=== PATIENT | male | born 1955 | race Caucasian/White ===

== ENCOUNTER 2019-03-25 06:43 | Day surgery (SDC) | payer OTHER ==
[~2019-03-25] VITALS: Ht 175.3 cm; Wt 96.0 kg
[2019-03-25] VITALS (9 sets, daily range): BP systolic 102–133; BP diastolic 78–93; PULSE 80–104; RESP 11–22; Ht 175.3 cm; Wt 96.0 kg
[~2019-03-25 06:43] MED LIST: SOD CHLORIDE 0.45% 1,000 ML IV SCH
[2019-03-25] MEDS ORDERED: FER325 PO (07:31)
[2019-03-25] MEDS ORDERED: FURO20TA3 PO (07:31)
[2019-03-25] MEDS ORDERED: ALPR0.25 PO (07:32)
[2019-03-25] MEDS ORDERED: ATOR20TA38 PO (07:32)
[2019-03-25] MEDS ORDERED: SENN-36 PO (07:32)
[2019-03-25] MEDS ORDERED: PROPOFOL 40 ML ONE (09:27)
[2019-03-25] MEDS ORDERED: LIDOCAINE 100 MG SYRINGE ONE (09:27)
[2019-03-25] MEDS ORDERED: FENTAnyl 50 MCG/ML VIAL ONE (09:27)
--- NOTE | 2019-03-25 09:47 | PREAC ---
Date/Time of Note Date/Time of Note DATE: 03/25/19 TIME: 09:41 Anesthesia Eval and Record Evaluation Time Pre-Procedure Interview DATE: 03/25/19 TIME: 09:41 Age 63 Sex male NPO: 8 hrs Preoperative diagnosis MITRAL REGURGITATION Planned procedure FABRIIZO Past Medical History Past Medical History: Includes (CMP) Cardio: HTN, Dyslipidemia, CAD Surgery & Anesthesia Issues No known issue Meds Anticoagulation: No Beta Hiram within 24 hr: No Reason Beta Hiram not given: Pt. not on B-Hiram Reported Medications Sennosides* (Senokot*) 8.6 Mg Tablet, 1 TAB PO DAILY, TAB 03/25/19 Alprazolam* (Xanax*) 0.25 Mg Tablet, 0.25 MG PO DAILY PRN for ANXIETY, TAB 03/25/19 Atorvastatin Calcium* (Atorvastatin Calcium*) 20 Mg Tablet, 20 MG PO QHS, #30 TAB 03/25/19 Ferrous Sulfate* (Ferrous Sulfate*) 325 Mg Tabec, 325 MG PO BID, TAB 03/25/19 Furosemide* (Furosemide*) 20 Mg Tablet, 20 MG PO DAILY, #60 TAB 03/25/19 Current Medications Sodium Chloride 1,000 ml @ 20 mls/hr Q24H IV ; Start 03/25/19 at 06:00; Stop 03/25/19 at 19:00 Meds reviewed: Yes Allergies Coded Allergies: No Known Allergy (Unverified , 03/25/19) Allergies Reviewed: Yes Labs/Studies Labs Reviewed: Reviewed by anesthesiologist Result Diagram: 03/25/19 0730 03/25/19 0730 Laboratory Tests 03/25/19 07:30 test: N/A Pre-procedure Exam Last vitals Vital Signs Date Temp Pulse Resp B/P (MAP) Pulse Ox O2 O2 Flow FiO2 Time Delivery Rate 03/25/19 97.1 104 16 131/93 98 Room Air 07:53 (106) Airway: Adequate mouth opening, Adequate thyromental dist Mallampati: Mallampati II Teeth: Normal Lung: Normal Heart: Normal ASA Physical Status ASA physical status: 3 Emergency: None Planned Anesthetic General/MAC: MAC Planned Pain Management Parenteral pain med Pre-operative Attestations Prior to commencing anesthesia and surgery, the patient was re-evaluated, there was verification of: *The patient's identity *The results of appropriate recent lab work and preoperative vital signs *The above evaluation not changing prior to induction *Anesthetic plan, risk benefits, alternative and complications discussed with p atient/family; questions answered; patient/family understands, accepts and wishes to proceed. Saul Alcantar M.D. Mar 25, 2019 09:47
--- NOTE | 2019-03-25 10:58 | SIPON ---
Date/Time of Note Date/Time of Note DATE: 03/25/19 TIME: 10:57 Operative Report Preoperative Diagnosis 1.Mitral regurgitation Postoperative Diagnosis 1.moderate to severe MR secondary etiology Operation/Procedure Performed 1.FABRIZIO Surgeon see signature line desk assistant 1.David Anesthesia: MAC Estimated blood loss: none Transfusion Required none Specimen none Grafts/Implants none Complications none DAVE SHIPLEY Mar 25, 2019 10:58
--- NOTE | 2019-03-25 11:04 | PAC ---
Date/Time of Note Date/Time of Note DATE: 03/25/19 TIME: 11:04 Post-Anesthesia Notes Post-Anesthesia Note Last documented vital signs Vital Signs Date Temp Pulse Resp B/P (MAP) Pulse Ox O2 O2 Flow FiO2 Time Delivery Rate 03/25/19 97.1 104 16 131/93 98 Room Air 07:53 (106) Activity: WNL Respiratory function: WNL Cardiovascular function: WNL Mental status: Baseline Pain reasonably controlled: Yes Hydration appropriate: Yes Nausea/Vomiting absent: Yes Saul Alcantar M.D. Mar 25, 2019 11:04
--- NOTE | 2019-03-26 08:17 | CARRPT ---
DATE OF PROCEDURE: 03/25/2019 TYPE OF PROCEDURE: Transesophageal echo, MR assess the etiology. ATTENDING PHYSICIAN: Dave Alejandro MD ANESTHESIA: MAC under direction of anesthesiologist, Dr. Alcantar at bedside. BRIEF HISTORY: Mr. Devon Ji is a 63-year-old male with history of hypertension and dyslipidemia, cardiomyopathy, decreased left ventricular ejection fraction. He presented as a consult from [facility] for a transseptal echo to assess etiology of mitral regurgitation prior to co ronary bypass graft surgery. DESCRIPTION OF PROCEDURE: After informed consent was obtained, the patient was brought to the [facility] unit where he was placed on continuous telemetry monitoring, continuous O2 saturation monito ring and blood pressure cuff cycling every 3 minutes. The patient had a bite block placed in his jin th and was given propofol MAC anesthesia under direction of anesthesiologist, Dr. Alcantar at [facility]. After achieving adequate local anesthesia, the patient's esophagus was intubated with transesopha geal echo probe and using a multiplanar imaging and color flow Doppler interrogation, the patient's i ntracardiac structures were adequately interrogated. The patient's proximal descending, ascending an d transverse aorta were then assessed, and the probe was removed. The patient was allowed to awake f rom his anesthetized state, completing the procedure. There were no noted complications. FINDINGS: 1. No definite findings of left atrial appendage thrombus or left atrial spontaneous contrast. Left atrial appendage velocity approximately 40 cm per second. 2. No definite findings of patent foramen ovale or other interatrial septal defect by color flow Dop pler interrogation of septum only. 3. Normal appearing aortic valve apparatus with trace aortic regurgitation. 4. Pulmonic apparatus poorly visualized. No pulmonic regurgitation noted. 5. Normal appearing catheter apparatus with a mild tricuspid regurgitation noted. 6. Mitral valve posterior leaflet is tethered and therefore there is poor coaptation of the patient' s mitral valve leaflets and subsequent posteriorly directed moderate to severe mitral regurgitation. There does not appear to have any flail leaflet identified. 7. Mild atherosclerotic plaquing in the patient's proximal descending, transverse and ascending aort a. IMPRESSION: Moderate to severe to the central mitral regurgitation secondary to a tethered pos terior mitral valve leaflet. RECOMMENDATIONS: The patient should undergo repair and/or replacement as necessary of the patient's mitral valve at time of coronary bypass graft surgery. Dictated By: DAVE MELARA/FERNANDO Conf#: [id number] DID#: [id number]
== END 2019-03-25 13:00 | disposition home or self-care (01) ==
LOC: SDS 06:43
PROVIDERS: ATTEND Internal Medicine
DX: I34.0 Nonrheumatic mitral (valve) insufficiency (principal); I25.10 Atherosclerotic heart disease of native coronary artery without angina pectoris; E78.5 Hyperlipidemia, unspecified; I42.9 Cardiomyopathy, unspecified
CPT/HCPCS: 71045; 80048; 85025; 85610; 85730; 93005; 93312; 93320; 93325; J2001; J3010; Z7610